=== PATIENT | female | born 1975 | race Caucasian/White ===

== ENCOUNTER 2019-03-27 11:46 | Day surgery (SDC) | payer OTHER ==
[2019-03-15 18:54] VITALS: BMI 24.7
[2019-03-27] MEDS ORDERED: PROPOFOL 20 ML ONE ×5 (13:33→13:54)
[2019-03-27 15:04] VITALS: BP 94/60; PULSE 71; TEMP 98
== END 2019-03-27 15:04 | disposition home or self-care (01) ==
LOC: FASU-ENDO 11:46
PROVIDERS: ATTEND Internal Medicine Gastroenterology
PROC: 0DJD8ZZ Inspection of Lower Intestinal Tract, Via Natural or Artificial Opening Endoscopic (ICD-10-PCS; principal; 2019-03-27 14:00)
DX: Z86.010 Personal history of colon polyps (principal)
CPT/HCPCS: 84703

== ENCOUNTER 2022-02-15 10:41 | Day surgery (SDC) | payer OTHER ==
[2022-02-11 12:41] VITALS: BMI 24.7
[2022-02-15 11:29] VITALS: RESP 18
[2022-02-15 13:31] VITALS: TEMP 97.1
[2022-02-15 13:45] VITALS: BP 98/52; PULSE 65
== END 2022-02-15 13:58 | disposition home or self-care (01) ==
LOC: FASU-ENDO 10:41
PROVIDERS: ATTEND Internal Medicine Gastroenterology
PROC: 0DJD8ZZ Inspection of Lower Intestinal Tract, Via Natural or Artificial Opening Endoscopic (ICD-10-PCS; principal; 2022-02-15 13:08)
DX: Z12.11 Encounter for screening for malignant neoplasm of colon (principal); K64.2 Third degree hemorrhoids
CPT/HCPCS: 84703

== ENCOUNTER 2022-08-05 11:38 | Day surgery (SDC) | payer OTHER ==
[2022-08-02 10:57] VITALS: BMI 24.7
[2022-08-05 11:55] VITALS: RESP 18
[2022-08-05 13:35] VITALS: TEMP 97
[2022-08-05 13:45] VITALS: BP 97/54; PULSE 64
== END 2022-08-05 13:56 | disposition home or self-care (01) ==
LOC: FASU-ENDO 11:38
PROVIDERS: ATTEND Internal Medicine Gastroenterology
PROC: 0DB68ZX Excision of Stomach, Via Natural or Artificial Opening Endoscopic, Diagnostic (ICD-10-PCS; 2022-08-05)
PROC: 0DB48ZX Excision of Esophagogastric Junction, Via Natural or Artificial Opening Endoscopic, Diagnostic (ICD-10-PCS; 2022-08-05)
PROC: 0DB98ZX Excision of Duodenum, Via Natural or Artificial Opening Endoscopic, Diagnostic (ICD-10-PCS; principal; 2022-08-05 13:15)
DX: K31.7 Polyp of stomach and duodenum (principal); K20.90 Esophagitis, unspecified without bleeding; K31.9 Disease of stomach and duodenum, unspecified; R10.13 Epigastric pain
CPT/HCPCS: 84703; 88305-TC; 88342-TC